=== PATIENT | female | born 1960 | race Hispanic/Latino ===

== ENCOUNTER 2016-08-16 11:33 | Emergency (ER) | payer OTHER ==
[~2016-08-16] VITALS: Ht 162.6 cm; Wt 72.6 kg
[~2016-08-16 11:33] MED LIST: IBU800 MG PO; IBUPROFEN600 M1 PO; LOVASTATIN40 MG PO; MEDROL DOSEPAK1 PAC PO; POLYTRIM O200 GTT/BO OP; TRAMADOL50 MG PO
[2016-08-16 11:57] VITALS: BP 132/74
--- NOTE | 2016-08-16 13:47 | ED GI/GU/ABDOMINAL COMPLAINT ---
History of Present Illness General Chief Complaint: Abdominal Pain/Flank Pain Stated Complaint: LOWER ABD PAIN THAT RADIATED TO BACK Source: patient, family Exam Limitations: language barrier Vital Signs & Intake/Output Vital Signs & Intake/Output Vital Signs Date Time Temp Pulse Resp B/P Pulse O2 O2 Flow FiO2 Ox Delivery Rate 08/16 1157 97.9 76 18 132/74 96 Room Air Allergies Coded Allergies: NO KNOWN ALLERGIES (12/19/15) Reconcile Medications Hydrocortisone (Anusol-Hc) 2.5 % CREAM..G. 1 ALIZA TOP BID HEMORRHOIDS apply to affected area(s) Ibuprofen 600 MG TABLET 1 TAB PO 4 TIMES/DAY PRN POR EL DOLOR/FOR PAIN Ibuprofen (Ibu) 800 MG TAB 1 TAB PO Q8H PRN PAIN Lovastatin 40 MG TABLET 1 TAB PO DAILY CHOLESTEROL (Reported) with food Methylprednisolone. (Medrol) 4 MG TAB.DS.PK 1 TAB PO AD SWELLING FACE Polytrim (Polytrim Eye Drops) 10 ML DROPS 1 DROP OP 4 TIMES/DAY BLEHARITIS TRAMADOL HCL (Tramadol) 50 MG TABLET 1-2 TAB PO Q6H PRN PAIN Triage Note: RECEIVED 55 YO FEMALE C/O LOWER PELVIC AREA PAIN X 5 DAYS, PT ALSO REPORTS RIGHT LOWER BACK AREA PAIN X 2 DAYS. PT REPORTS DIFFICULTY HAVING BOWEL MOVEMENT. Triage Nurses Notes Reviewed? yes ? N Is pt currently ? No Onset: Gradual Duration: constant Timing: recent history Quality/Severity: moderate Severity Numbers: 5 Radiation: no radiation Activities at Onset: none HPI: Patient is a 55-year-old female who presented to emergency with a 5 day history of rectal discomfort made worse with bowel movements and was last bowel movement was yesterday however no blood noted no melena was noted. Patient does complain of a 5 day history of intermittent abdominal discomfort however nothing is noted of abdominal pain today. Patient is able tolerate by mouth with no change in symptoms. Denies any vaginal bleeding vaginal discharge or dysuria hematuria Patient does complain of intermittent back pain however nothing now. Patient has tried ibuprofen with relief of symptoms Last colonoscopy was approximately 3 years ago performed by Dr. MILES Denies any discharge Patient states that sitting makes worse. Patient currently denies any fever, chills, nausea vomiting and abdominal pain back pain and flank pain History is limited due to language barrier however patient does present with family member who translates Past History Travel History Traveled to [place] past 21 day No Medical History Any Pertinent Medical History? 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 No Review of Systems Review of Systems Constitutional: Reports: no symptoms. EENTM: Reports: no symptoms. Respiratory: Reports: no symptoms. Cardiovascular: Reports: no symptoms. GI: Reports: see HPI. Genitourinary: Reports: see HPI. Musculoskeletal: Reports: see HPI. Skin: Reports: no symptoms. Neurological/Psychological: Reports: no symptoms. Hematologic/Endocrine: Reports: no symptoms. Immunologic/Allergic: Reports: no symptoms. All Other Systems: Reviewed and Negative Physical Exam Physical Exam General Appearance: no apparent distress, alert, comfortable Gastrointestinal: normal bowel sounds, soft, non-tender, NONTENDER ABDOMEN, NO PERITONEAL SIGNS NO REBOUND TENDERNESS Rectal: PATIENT NOTED TO HAVE IN THE 6 O'CLOCK POSITION A 5 MM SOFT TENDER EXTERNAL HEMORRHOID NONTHROMBOSED NO ACTIVE BLEEDING. nO SURROUNDING RECTAL OR PERIRECTAL FLUCTUANCE DISCHARGE ERYTHEMA OR INDURATION. nO ACTIVE DISCHARGE Comments: Well-developed well-nourished person in no acute distress HEENT: Normal EENT exam, extraocular motion intact, no nystagmus. Pupils equally round and reactive to light and accommodation. Nose is atraumatic. External auditory canal and Tympanic membranes clear. Pharynx normal. No swelling or edema. Neck: Supple, no lymphadenopathy, normal range of motion without pain or tenderness Back: Nontender, no CVA tenderness. Full range of motion Cardiovascular: Regular rate and rhythms no murmurs rubs or gallops, normal JVP Respiratory: Chest nontender. No respiratory distress.breath sounds clear to auscultation bilaterally Abdomen: Soft, nontender nondistended, no appreciable organomegaly. Normal bowel sounds. No ascites Extremity: No edema, no calf tenderness to palpation, normal and equal pulses. Neuro: Alert oriented x3, motor sensory normal, cranial nerves II through XII grossly intact. Skin: No appreciable rash on exposed skin, skin is warm and dry. Psych: Mood and affect is normal, memory and judgment is normal. Core Measures ACS in differential dx? No Severe Sepsis Present: No Septic Shock Present: No Progress Differential Diagnosis: AAA, AMI, appendicitis, biliary colic, bowel obstruction , colon cancer, cholecystitis, diverticulitis, endometritis, esophageal varices, gastritis, hepatitis, hernia, hemorrhoids, ischemic bowel, inflamm bowel dis, kidney stone, Tosha-Deana tear, ovarian cyst, ovarian torsion, pancreatitis, PID/cervicitis, peptic ulcer, PUD/GERD, perforated viscous, SBO, threatened AB, UTI/pyelo Plan of Care: Orders Procedure Date/time Status URINALYSIS 08/16 1159 Complete Laboratory Tests 08/16/16 1226: Urine Color YEL, Urine Clarity CLEAR, Urine pH 6.0, Ur Specific Callands 1.020, Urine Protein NEG, Urine Ketones NEG, Urine Nitrite NEG, Urine Bilirubin NEG, Urine Urobilinogen 0.2, Ur Leukocyte Esterase TRACE H, Ur Microscopic SEDIMENT EXAMINED, Urine RBC RARE, Urine WBC RARE, Ur Epithelial Cells FEW, Urine Hemoglobin NEG, Urine Glucose NEG Patient currently is in no apparent distress, patient has nontender abdomen and no complaints of abdominal pain in the emergency room today. Patient doesn't physical exam have signs of external nonthrombosed hemorrhoid in which I discussed and stressed the importance of GI follow-up and to improve patient's symptoms using sitz baths anti-inflammatory cream and Tucks pads. Patient at this time shows no concerns of abscess or cellulitis Upon discharge patient looks well NAD, and will comply discharge instructions and had no questions. (BECCA AYERS,MELODY) Initial ED EKG: none Departure Departure Disposition: HOME OR SELF CARE Condition: Stable Clinical Impression Primary Impression: External hemorrhoid Secondary Impressions: Abdominal pain Referrals: JD REED,SUSAN REYNOLDS (PCP/Family) Additional Instructions: As discussed begin to use warm baths to improve your symptoms Begin the prescription of ANUSOL CREAM as directed and apply to your symptoms. Continue [id number] ibuprofen for pain and inflammation. Begin over-the- counter stool softeners of DOCULSATE and laxative [id number] medications of MIRALAX to improve bowel production and your symptoms. If no better once a follow-up with your established stove installer Dr. Marcial for further evaluation treatment. If symptoms worsen OF IF YOU develop a concerning NEW symptom return to emergency room. Prescription of ANUSOL is waiting at [facility] pharmacy. ALSO begin [id number] Tucks Pads to to improve your symptoms Departure Forms: Customer Survey General Discharge Information Prescriptions: Current Visit Scripts Hydrocortisone (Anusol-Hc) 1 ALIZA TOP BID #30 GM apply to affected area(s)
[2016-08-16] MEDS ORDERED: ANUSOL-HC30 GM TOP (14:06)
== END 2016-08-16 14:14 ==
LOC: ERH 11:33
DX: K64.4 Residual hemorrhoidal skin tags (principal); R10.9 Unspecified abdominal pain
CPT/HCPCS: 81001

== ENCOUNTER 2017-01-14 20:24 | Emergency (ER) | payer OTHER ==
[~2017-01-14] VITALS: Ht 162.6 cm; Wt 78.0 kg
[~2017-01-14 20:24] MED LIST changes: +ANUSOL-HC30 GM TOP
[2017-01-14] MEDS ORDERED: ATORVASTATIN CA40 M1 PO (21:46)
[2017-01-14] MEDS ORDERED: IMITREX50 M1 PO (21:46)
[2017-01-14] MEDS ORDERED: OMEPRAZOLE40 M1 PO (21:46)
--- NOTE | 2017-01-14 22:00 | ED EYE COMPLAINT ---
History of Present Illness General Chief Complaint: Eye Problems Stated Complaint: RIGHT EYE PAIN X 3 DAYS PER PT Source: patient, family Exam Limitations: language barrier Vital Signs & Intake/Output Vital Signs & Intake/Output Vital Signs Date Time Temp Pulse Resp B/P B/P Pulse O2 O2 Flow FiO2 Mean Ox Delivery Rate 01/14 2245 97.8 62 20 135/76 97 Room Air 01/14 2045 97.9 72 16 132/76 97 Room Air ED Intake and Output 01/15 0000 01/14 1200 Intake Total 0 Output Total Balance 0 Intake, Oral 0 Patient 172 lb Weight Weight Standing Scale Measurement Method Allergies Coded Allergies: NO KNOWN ALLERGIES (12/19/15) Reconcile Medications Atorvastatin Calcium 40 MG TABLET 1 TAB PO DAILY CHOLESTEROL (Reported) Butalb/Acetaminophen/Caffeine (Fioricet 50-300-40 MG Capsule) 50 MG-300 MG-40 MG CAPSULE 1-2 TAB PO Q6P PRN PAIN Omeprazole 40 MG CAPSULE.DR 1 CAP PO DAILY GI (Reported) Sumatriptan Succinate (Imitrex) 50 MG TABLET 1 TAB PO AD PRN MIGRAINES ( Reported) Triage Note: RECEIVED 56 YO FEMALE C/O RIGHT EYE PAIN X 2 DAYS, MUCH WORSE TODAY. VERY MILD REDNESS NOTED, NO DRAINAGE. Triage Nurses Notes Reviewed? yes Onset: Abrupt Duration: day(s): (3), constant, continues in ED Timing: recent history Injury Environment: home No Modifying Factors: none HPI: 56-year-old female with a history of migraines comes into emergency room with complaints of right eye pain and headache has been going on for the past 3 days continuous. Patient reports some intermittent blurry vision on the right eye but denies any vision loss. Denies any trauma to the eye. Denies any discharge or redness. Pain is located directly behind the eye and the eye itself. She reports that she's been having this intermittent diffuse headache. Denies any vomiting. Denies any fever or chills neck pain. Denies any other associated symptoms. Patient does admit that this feels characteristic of her previous migraine headaches. (CRISTO HEWITT) Past History Travel History Traveled to [place] past 21 day No Medical History Any Pertinent Medical History? 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 No (CRISTO HEWITT) Review of Systems Review of Systems Constitutional: Reports: no symptoms. Eyes: Reports: see HPI. Ear: Reports: no symptoms. Nose: Reports: no symptoms. Mouth: Reports: no symptoms. Throat: Reports: no symptoms. Respiratory: Reports: no symptoms. Cardiovascular: Reports: no symptoms. GI: Reports: no symptoms. Genitourinary: Reports: no symptoms. Musculoskeletal: Reports: no symptoms. Skin: Reports: no symptoms. Neurological/Psychological: Reports: see HPI. Hematologic/Endocrine: Reports: no symptoms. Immunologic/Allergic: Reports: no symptoms. All Other Systems: Reviewed and Negative (CRISTO HEWITT) Physical Exam General Appearance: well developed/nourished, mild distress General Inspection: normal inspection Eyelid: normal inspection Conjunctiva/Sclera: normal inspection Cornea: normal inspection EOM: intact Pupil: normal accommodation, normal pupil, PERRL General Inspection: normal inspection Eyelid: normal inspection Conjunctiva/Sclera: normal inspection Cornea: normal inspection, examined w/fluorescein, no abrasion EOM: intact Pupil: normal accommodation, normal pupil, PERRL, intraocular pressure 21 mmHg Posterior Segments: normal funduscopic Physical Exam Head: atraumatic Nose: normal inspection Mouth/Throat: normal mouth inspection Neck: normal inspection Cardiovascular/Respiratory: normal breath sounds, regular rate/rhythm Neurologic/Psych: awake, alert, oriented x 3, normal mood/affect Skin: intact, normal color, warm/dry (CRISTO HEWITT) Progress Differential Diagnosis: corneal abrasion, corneal foreign body, conjunctivitis, detached retina, glaucoma, globe rupture, retinal art./v. occlusion, migraine Plan of Care: Orders Procedure Date/time Status CT HEAD WO IV CONTRAST 01/14 2125 Active Comments: 01/15/2017 3:13:52 PM Patient clinically looks well. No apparent distress. Nontoxic appearing. Patient has a upper limits of normal pressure in the right eye. No signs of glaucoma. Patient likely has an ocular migraine. Headache feels previously consistent with other migraines. Patient did not tell me until the end of the evaluation that she had a history of migraine headaches. Neurologically intact. CT scan showed no acute findings. Patient should follow-up with payroll supervisor. Return if any other concerns. Understands and agrees with the plan of care. (CRISTO HEWITT) Departure Departure Disposition: HOME OR SELF CARE Condition: Stable Clinical Impression Primary Impression: Pain in right eye Secondary Impressions: Headache Referrals: SUSAN COTO (PCP/Family) ZUNILDA REED,JESSICA Sanon. Additional Instructions: Follow-up with payroll supervisor tomorrow. Return if any concerns worsening symptoms. Take Fioricet as prescribed. Please go over all results of today's visit with your primary care doctor. Contact your primary care doctor to let them know you were here in the emergency room. There may be nonspecific findings which may not be related to your visit today here in the emergency room but may require further evaluation and chronic monitoring by your primary care doctor. If you had a laceration today the chance of foreign body always remains. You should follow-up with your primary care doctor for recheck in 3-5 days for a wound check. If you had an x-ray done there is a chance that a fracture could have been missed on initial read and you should follow-up with your primary care doctor for repeat x-rays if symptoms persist. If your blood pressure was elevated here in the emergency room please have rechecked by her primary care doctor within the next 48 hours by your primary care doctor. If you were prescribed a narcotic here in the emergency room or any type of controlled substances you're not allowed to drive while taking this medication or operate any type of heavy machinery. Narcotics can make you feel lightheaded dizziness nausea and can cause constipation. You may need to citrus picker a stool softener. Thank you for choosing emergency room. Please return to the emergency room immediately if you have any other concerns worsening of symptoms. Departure Forms: Customer Survey General Discharge Information Prescriptions: Current Visit Scripts Butalb/Acetaminophen/Caffeine (Fioricet 50-300-40 MG Capsule) 1-2 TAB PO Q6P PRN PAIN #20 MG (CRISTO HEWITT) PA/DURABLE MEDICAL EQUIPMENT TECHNICIAN Co-Sign Statement Statement: ED Attending supervision documentation- I saw and evaluated the patient. I have also reviewed all the pertinent lab results and diagnostic results. I agree with the findings and the plan of care as documented in the PA's/DURABLE MEDICAL EQUIPMENT TECHNICIAN's documentation. X I have reviewed the ED Record and agree with the PA's/DURABLE MEDICAL EQUIPMENT TECHNICIAN's documentation. [] Additions or exceptions (if any) to the PAs/DURABLE MEDICAL EQUIPMENT TECHNICIAN's note and plan are summarized below: [] (VIRIDIANA REED,AMY)
--- NOTE | 2017-01-14 22:22 | CT SCAN REPORT ---
EXAMINATION: CT HEAD WITHOUT CONTRAST CLINICAL INFORMATION: Headache behind right eye COMPARISON: None TECHNIQUE: Contiguous axial imaging was performed from the skull base to vertex without intravenous administration of contrast. DLP: 627.31 mGy-cm FINDINGS: There is no evidence of acute intracranial hemorrhage or territorial infarction. No abnormal mass effect or midline shift is seen. [place] to white matter differentiation is well preserved. No extra-axial fluid collections are identified. There is age-appropriate prominence of the ventricles and the sulci . The osseous structures and soft tissues are normal. The mastoid air cells and visualized portions of the paranasal sinuses are well aerated. IMPRESSION: No acute intracranial pathology.
[2017-01-14] MEDS ORDERED: FIORICET 50-301 EACH PO (22:36)
[2017-01-14 22:45] VITALS: BP 135/76
== END 2017-01-14 22:48 ==
LOC: ERH 20:24
DX: H57.11 Ocular pain, right eye (principal); R51 Headache